=== PATIENT | female | born 1955 | race Caucasian/White ===

== ENCOUNTER 2022-04-28 07:40 | Outpatient (CLI) | payer MEDICARE, SELFPAY ==
--- NOTE | ~2022-04-28 | MM_ITS ---
EXAMINATION: MM screening [facility] BI w shara HISTORY: Screening mammogram TECHNIQUE: Craniocaudal and mediolateral oblique 3-D tomosynthesis images were obtained and synthetic 2-D images were generated. CAD analysis was submitted and interpreted. COMPARISON: 04/25/2019, 03/29/2018, 03/27/2017 bilateral screening mammogram examinations BREAST PARENCHYMAL COMPOSITION: The breasts are almost entirely fatty. FINDINGS: There is no evidence of suspicious mass, calcification, or architectural distortion to sugg est malignancy in either breast. There has been no suspicious interval change. IMPRESSION: 1. No mammographic evidence of malignancy. 2. Recommend routine screening mammography in one year. BI-RADS Category 1: Negative Reviewed, dictated and finalized at location A. [facility] [employer]
== END 2022-04-28 07:41 | disposition home or self-care (01) ==
LOC: ANHIMG 07:43
PROVIDERS: PCP Internal Medicine; Visit Provider Internal Medicine
DX: Z12.31 Encounter for screening mammogram for malignant neoplasm of breast (principal)
CPT/HCPCS: 77063; 77067

== ENCOUNTER 2023-06-15 08:17 | Outpatient (CLI) | payer MEDICARE, SELFPAY ==
--- NOTE | ~2023-06-15 | MM_ITS ---
EXAMINATION: MM screening tenisha BI w shara HISTORY: Screening TECHNIQUE: Craniocaudal and mediolateral oblique 3-D tomosynthesis images were obtained and synthetic 2-D images were generated. CAD analysis was submitted and interpreted. COMPARISON: Comparison to multiple prior studies sequentially, with oldest reviewed study dated 02/20. BREAST PARENCHYMAL COMPOSITION: Not Dense: Breast are almost entirely fatty. FINDINGS: There is no evidence of suspicious mass, calcification, or architectural distortion to sugg est malignancy in either breast. There has been no suspicious interval change. IMPRESSION: 1. No mammographic evidence of malignancy. 2. Recommend routine screening mammography in one year. BI-RADS Category 1: Negative Reviewed, dictated and finalized at location A. [employer]
== END 2023-06-15 08:18 | disposition home or self-care (01) ==
LOC: ANHIMG 08:20
PROVIDERS: PCP Internal Medicine; Visit Provider Internal Medicine
DX: Z12.31 Encounter for screening mammogram for malignant neoplasm of breast (principal)
CPT/HCPCS: 77063; 77067

== ENCOUNTER 2024-08-05 07:12 | Outpatient (CLI) | payer MEDICARE, SELFPAY ==
--- NOTE | ~2024-08-05 | MM_ITS ---
EXAMINATION: MM screening tenisha BI w shara HISTORY: Screening TECHNIQUE: Craniocaudal and mediolateral oblique 3-D tomosynthesis images were obtained and synthetic 2-D images were generated. CAD analysis was submitted and interpreted. COMPARISON: Comparison to multiple prior studies sequentially, with oldest reviewed study dated 11/2016. BREAST PARENCHYMAL COMPOSITION: Not Dense: The breasts are almost entirely fatty. FINDINGS: There is no evidence of suspicious mass, calcification, or architectural distortion to sugg est malignancy in either breast. There has been no suspicious interval change. IMPRESSION: 1. No mammographic evidence of malignancy. 2. Recommend routine screening mammography in one year. BI-RADS Category 1: Negative Reviewed, dictated and finalized at location B.
--- OUTSIDE RECORDS SUMMARY | 2024-08-05 07:18 | XMS_ITS | Data Portability ---
Author Organization [facility], Main Office Address [address] [place] [address] Assessment No assessment recorded. Plan of Treatment Reminders Order Date Submit Date Provider Last Modified By Organization Details Last Modified Time Details Appointments Any 2024 07:45A Alex Casas MD Not available Not available Not available Medicare Wellness 2024 11:30A Alex Casas MD Not available Not available Not available Lab glycohemo globin, total, blood 2024 025 [facility] (Lab), [address] [place], [address], 05/30/2024 19:41:29 CMP, serum or plasma 2024 025 [facility] (Lab), [address] [place], [address], 05/30/2024 19:42:20 microalbu min, urine 2024 025 [facility] (Lab), [address] [place], [address], 05/30/2024 19:46:32 lipid panel, serum 2024 025 [facility] (Lab), [address] [place], [address], 05/30/2024 19:42:24 CBC w/ auto diff 2024 025 [facility] (Lab), [address] [place], [address], 05/30/2024 19:28:43 vitamin D, 25-hydrox y, total, serum [address] (Lab), [address] [place], [address], 06/06/2024 14:51:34 TSH, serum or plasma 2024 025 [facility] (Lab), [address] [place], [address], 05/30/2024 20:16:55 glycohemo globin, total, blood [address] (Lab), [address] [place], [address], 12/22/2023 09:57:06 CMP, serum or plasma [address] (Lab), [address] [place], [address], 12/22/2023 09:57:06 lipid panel, serum [address] (Lab), [address] [place], [address], 12/22/2023 09:57:06 glycohemo globin, total, blood 2023 024 [facility] (Lab), [address] [place], [address], 06/01/2023 20:31:49 CMP, serum or plasma 2023 024 [facility] (Lab), [address] [place], [address], 06/01/2023 19:42:31 microalbu min, urine 2023 024 [facility] (Lab), [address] [place], [address], 06/01/2023 19:40:43 TSH, serum or plasma 2023 024 [facility] (Lab), [address] [place], [address], 06/01/2023 20:10:57 glycohemo globin, total, blood 2022 023 [facility] (Lab), [address] [place], [address], 2023 23:40:30 microalbu min, urine [email or web address] (Lab), [address] [place], [address], 02/03/2023 07:55:18 CMP, serum or plasma 2022 023 [facility] (Lab), [address] [place], [address], 2023 21:31:45 lipid panel, serum 2022 023 [facility] (Lab), [address] [place], [address], 2023 21:31:50 vitamin D, 25-hydrox y, total, serum 2022 023 [facility] (Lab), [address] [place], [address], 01/30/2023 03:05:01 CMP, serum or plasma 2022 023 [facility] (Lab), [address] [place], [address], 01/30/2023 03:05:01 TSH, serum or plasma 2022 023 [facility] (Lab), [address] [place], [address], 2023 21:30:38 T4, free, serum 2022 023 [facility] (Lab), [address] [place], [address], 2023 21:45:58 T3, free, serum or plasma 2022 023 [facility] (Lab), [address] [place], [address], 2023 23:01:09 glycohemo globin, total, blood 2022 023 [facility] (Lab), [address] [place], [address], 09/30/2022 02:22:25 CMP, serum or plasma 2022 023 [facility] (Lab), [address] [place], [address], 09/30/2022 01:16:01 Referral None recorded. Procedures None recorded. Surgeries None recorded. Imaging MAMMO, screening , digital, bilateral - Please call patient to schedule. 2024 025 [email or web address] [facility], [address], [place] [address], [place], [address], 08/02/2024 10:24:18 LDCT, chest, for lung cancer screening - Please call patient to schedule. [address] ([facility]), [address] [place], [address], 06/08/2024 11:53:28 LDCT, chest, for lung cancer screening 2023 024 [facility] ([facility]), [address] [facility], [place], [address], 01/19/2024 09:58:33 MAMMO, screening , digital, bilateral - no auth required 2023 024 [email or web address] Not available 06/16/2023 18:36:27 LDCT, chest, for lung cancer screening 2023 024 Not available 06/16/2023 09:12:30 LDCT, chest, for lung cancer screening 2022 023 Not available 02/17/2023 08:10:16 Medication Orders simvastat in 10 mg tablet 2024 025 [facility], [address], [place], [address], 05/30/2024 09:45:24 losartan 50 mg-hydroc hlorothia zide 12.5 mg tablet 2024 025 [facility] Orlandocharity, [address], [place], [address], 05/30/2024 09:45:23 levothyro xine 50 mcg tablet 2024 025 [facility], [address], [place], [address], 05/30/2024 09:45:24 Jardiance 10 mg tablet 2023 024 [email or web address] [facility], [facility], [place], [address], 05/30/2024 09:22:59 simvastat in 10 mg tablet 2023 024 [facility], [facility], [place], [address], 11/30/2023 09:56:09 losartan 50 mg-hydroc hlorothia zide 12.5 mg tablet 2023 024 FLAQUITO [facility], [address] [place] [address], [address], 11/30/2023 09:54:07 levothyro xine 50 mcg tablet 2023 024 F[place] [facility], [address] [place] [address], [address], 11/30/2023 09:54:09 Jardiance 10 mg tablet 2023 024 [email or web address] [facility], [address] [place] [address], [address], 05/30/2024 09:22:59 betametha sone valerate 0.1 % topical cream 2023 024 [facility], [address] [place], [address], 06/01/2023 10:18:52 losartan 50 mg-hydroc hlorothia zide 12.5 mg tablet 2023 024 [facility], [address] [place] [address], [address], 06/01/2023 14:25:51 simvastat in 10 mg tablet 2023 024 [facility], [address] [place] [address], [address], 06/01/2023 14:25:51 levothyro xine 50 mcg tablet 2023 024 [email or web address], [address] [place] [address], [address], 06/01/2023 14:25:51 losartan 50 mg-hydroc hlorothia zide 12.5 mg tablet 2022 023 [place] [facility], [address] [place] [address], [address], [place], [address], 09/29/2022 10:32:02 levothyro xine 50 mcg tablet 2022 023 F[place] [facility], [address] [place] [address], [address], [place], [address], 09/29/2022 10:32:02 Patient TargetsNo targets recorded. Patient Instructions Encounter Date Encounter Id Patient Instructions Last Modified By Organization Details Last Modified Time 11/30/2023 [id number] dementia rating scale-2* Not available 11/30/2023 15:03:20 depression screening* Not available 11/30/2023 17:18:27 alcohol misuse* Not available 11/30/2023 17:18:27 multi-dimensiona l health assessment questionnaire* Not available 11/30/2023 17:18:27 advance directiv es: care instructions Not available 11/30/2023 17:18:27 advance care planning: care instructions Not available 11/30/2023 17:18:27 [place] Advance Directives Not available 11/30/2023 17:18:27 Personalized a lt Plan and Screening Recommendations Advance Directives - Do you have one? No You have indicated that you are capable of preparing your advance care directive Advance Directives - Do we have your advance directive on file in your health record? No, please bring in a copy at your earliest convenience Primary Prevention/Interven tion (prevents or decreases the chance of common diseases from occurring) Smoking Risk: Non Smoker Alcohol Misuse Screening: Negative Weight: Appropriate Overwei ght continue your current weight loss efforts try to lose 5% of your body weight try to lose 10% of your body weight Physical activity: Appropriate physical activity minimum of 10-20 minutes of activity that causes mild breathlessness/day Nutrition: Good Average Refer to attached handout Heart-Healthy Diet: After Your Visit Fall Risk (screened today): Low Refer to attached handout Preventing Falls: After your Visit Vaccines Pneumococcal: Ordered Influenza: Your next one in the fall of this year Chronic Disease Risks Stroke: Low Risk Intermediate Risk I have no recommendations Act anatoliy diagnosis, Continue current treatment plan Heart Attack: Low risk Intermediate Risk I have no recommendations Act anatoliy diagnosis, Continue current treatment plan Clogging of the Arteries: Low risk Intermediate Risk I have no recommendations Act anatoliy diagnosis, Continue current treatment plan Diabetes: Low Risk Intermediate Risk Active diagnosis, Continue current treatment plan Secondary Prevention/Interven tion (detects treatable diseases before they may cause symptoms, disability, or ) Breast Cancer Screening with mammogram: No screening necessary Cervical/Uterine/Ov raegan Cancer Screening: No screening necessary Osteoporosis Screening: No screening necessary Date Screening Last Performed: _2021____ Colon Cancer Screening: Date Screening Last Performed: Eye Disease Screening: No Eye exam necessary Dementia Risk: Low I have no recommendations Depression Screening: Negative [email or web address] Not available 11/30/2023 10:47:52 Reason for Referral None Reported. Results Created Date Observation Date Name Description Value Unit Range Abnormal Flag Note LastModifiedBy Organization Detail LastModifiedTime 09/30/1909/29/2022 COMPR EHENS ANATOLIY METAB OLIC PANEL sodium 137 mmol/ L 137-14 5 Not Available [facility] (Lab) [address] [place], [address], 09/29/2022 20:04:31 09/30/19 23 09/29/2022 COMPR EHENS ANATOLIY METAB OLIC PANEL potassium 4.0 mmol/ L 3.5-5. 1 Not Available [facility] (Lab) [address] [place], [address], 09/29/2022 20:04:31 09/30/19 23 09/29/2022 COMPR EHENS ANATOLIY METAB OLIC PANEL chloride 100 mmol/ L 98-107 Not Available [facility] (Lab) [address] [place], [address], 09/29/2022 20:04:31 09/30/19 23 09/29/2022 COMPR EHENS ANATOLIY METAB OLIC PANEL carbon dioxide 26 mmol/ L 22-30 Not Available [facility] (Lab) [address] [place], [address], 09/29/2022 20:04:31 09/30/19 23 09/29/2022 COMPR EHENS ANATOLIY METAB OLIC PANEL anion gap 15.0 mmol/ L 14-22 Not Available [facility] (Lab) [address] [place], [address], 09/29/2022 20:04:31 09/30/19 23 09/29/2022 COMPR EHENS ANATOLIY METAB OLIC PANEL glucose 200 mg/dL 70-99 high Not Available [facility] (Lab) [address] [place], [address], 09/29/2022 20:04:31 09/30/19 23 09/29/2022 COMPR EHENS ANATOLIY METAB OLIC PANEL BUN 18 mg/dL 8-19 Not Available [facility] (Lab) [address] [place], [address], 09/29/2022 20:04:31 09/30/19 23 09/29/2022 COMPR EHENS ANATOLIY METAB OLIC PANEL creatinine 0.64 mg/dL 0.66-1 .25 low Not Available [facility] (Lab) [address] [place], [address], 09/29/2022 20:04:31 09/30/19 23 09/29/2022 COMPR EHENS ANATOLIY METAB OLIC PANEL GFR >60 Refer ence Range : [place] GFR Healt hy Adult : >60 mL/mi n/1.7 3 m2 Chron ic Kidne y Disea se: 15-60 mL/mi n/1.7 3 m2 Kidne y Failu re: <15/m L/min /1.73 m2 www.n iddk. nih.g ov The MDRD study equat ion has not been valid ated in child josef <18 years of age; pregn ant women ; the elder ly >85 years of age; or in some racia l or ethni c subgr oups, such as Hispa nics. Outsi de the valid ated shaila eters , estim ated GFR is less accur ate, requi ring clini nikita judgm ent on a case- by-ca se basis . Clini nikita inter preta tion for other races and ages must be made by the clini sheridan. The MDRD study equat ion has not been valid ated for the evalu ation of serum creat inine relat ed to nutri monica l statu s or medic ation usage . For perso ns <18 years of age, a pedia tric GFR calcu lator is avail able on the [facility] websi te: https ://ww w.kid jonathon.o rg/pr ofess ional s/kdo qi/gf r_cal culat or Not Available [facility] (Lab) [address] [place], [address], 09/29/2022 20:04:31 09/30/19 23 09/29/2022 COMPR EHENS ANATOLIY METAB OLIC PANEL alkaline phosphatase 94 U/L 38-126 Not Available [facility] (Lab) [address] [place], [address], 09/29/2022 20:04:31 09/30/19 23 09/29/2022 COMPR EHENS ANATOLIY METAB OLIC PANEL alanine aminotransfe rase 31 U/L 0-35 Not Available [facility] (Lab) [address] [place], [address], 09/29/2022 20:04:31 09/30/19 23 09/29/2022 COMPR EHENS ANATOLIY METAB OLIC PANEL aspartate aminotransfe rase 30 U/L 15-37 Not Available [facility] (Lab) [address] [place], [address], 09/29/2022 20:04:31 09/30/19 23 09/29/2022 COMPR EHENS ANATOLIY METAB OLIC PANEL bilirubin, total 1.10 mg/dL 0.20-1 .30 Not Available [facility] (Lab) [address] [place], [address], 09/29/2022 20:04:31 09/30/19 23 09/29/2022 COMPR EHENS ANATOLIY METAB OLIC PANEL calcium 9.4 mg/dL 8.4-10 .2 Not Available [facility] (Lab) [address] [place], [address], 09/29/2022 20:04:31 09/30/19 23 09/29/2022 COMPR EHENS ANATOLIY METAB OLIC PANEL total protein 7.0 g/dL 6.3-8. 2 Not Available [facility] (Lab) [address] [place], [address], 09/29/2022 20:04:31 09/30/19 23 09/29/2022 COMPR EHENS ANATOLIY METAB OLIC PANEL albumin 4.1 g/dL 3.0-4. 4 Not Available [facility] (Lab) [address] [place], [address], 09/29/2022 20:04:31 09/30/19 23 09/29/2022 COMPR EHENS ANATOLIY METAB OLIC PANEL globulin 2.9 g/dL 2.6-4. 2 Not Available [facility] (Lab) [address] [place], [address], 09/29/2022 20:04:31 09/30/19 23 09/29/2022 COMPR EHENS ANATOLIY METAB OLIC PANEL A/G ratio 1.4 ratio 1.0-2. 0 Not Available [facility] (Lab) [address] [place], [address], 09/29/2022 20:04:31 09/30/19 23 09/29/2022 HEMOG LOBIN A1C HA1C 8.5 % 4.0-6. 0 high Diabe lottie Scree aishwarya Crite kd: <5.7% Consi stent with absen ce of diabe lottie 5.7-6 .4% Consi stent with incre ased risk for diabe lottie (pred iabet es) >OR=6 .5% Consi stent with diabe lottie REFER ENCE: Diabe lottie Care 2016, 39(Burks ppl.1 ):s13 -s22 Not Available [facility] (Lab) [address] [place], [address], 09/29/2022 20:54:12 01/30/2001/29/2023 TSH thyroid-stim ulating hormone 2.760 uIU/m L 0.465- 4.680 Not Available [facility] (Lab) [address] [place], [address], 2023 21:30:38 01/30/2001/29/2023 COMPR EHENS ANATOLIY METAB OLIC PANEL sodium 138 mmol/ L 137-14 5 Not Available [facility] (Lab) [address] [place], [address], 2023 21:31:45 01/30/2001/29/2023 COMPR EHENS ANATOLIY METAB OLIC PANEL potassium 3.8 mmol/ L 3.5-5. 1 Not Available [facility] (Lab) [address] [place], [address], 2023 21:31:45 01/30/20 23 2023 COMPR EHENS ANATOLIY METAB OLIC PANEL chloride 103 mmol/ L 98-107 Not Available [facility] (Lab) [address] [place], [address], 2023 21:31:45 01/30/20 23 2023 COMPR EHENS ANATOLIY METAB OLIC PANEL carbon dioxide 24 mmol/ L 22-30 Not Available [facility] (Lab) [address] [place], [address], 2023 21:31:45 01/30/20 23 2023 COMPR EHENS ANATOLIY METAB OLIC PANEL anion gap 14.8 mmol/ L 14-22 Not Available [facility] (Lab) [address] [place], [address], 2023 21:31:45 01/30/2001/29/2023 COMPR EHENS ANATOLIY METAB OLIC PANEL glucose 130 mg/dL 70-99 high Not Available [facility] (Lab) [address] [place], [address], 2023 21:31:45 01/30/2001/29/2023 COMPR EHENS ANATOLIY METAB OLIC PANEL BUN 17 mg/dL 8-19 Not Available [facility] (Lab) [address] [place], [address], 2023 21:31:45 01/30/20 23 2023 COMPR EHENS ANATOLIY METAB OLIC PANEL creatinine 0.72 mg/dL 0.66-1 .25 Not Available [facility] (Lab) [address] [place], [address], 2023 21:31:45 01/30/2001/29/2023 COMPR EHENS ANATOLIY METAB OLIC PANEL GFR >60 Refer ence Range : [place] GFR Healt hy Adult : >60 mL/mi n/1.7 3 m2 Chron ic Kidne y Disea se: 15-60 mL/mi n/1.7 3 m2 Kidne y Failu re: <15/m L/min /1.73 m2 www.n iddk. nih.g ov The MDRD study equat ion has not been valid ated in child josef <18 years of age; pregn ant women ; the elder ly >85 years of age; or in some racia l or ethni c subgr oups, such as Hispa nics. Outsi de the valid ated shaila eters , estim ated GFR is less accur ate, requi ring clini nikita judgm ent on a case- by-ca se basis . Clini nikita inter preta tion for other races and ages must be made by the clini sheridan. The MDRD study equat ion has not been valid ated for the evalu ation of serum creat inine relat ed to nutri monica l statu s or medic ation usage . For perso ns <18 years of age, a pedia tric GFR calcu lator is avail able on the [facility] websi te: https ://ilia torres.neftaly holt.o rg/pr ofess ional s/kdo qi/gf r_cal culat or Not Available [facility] (Lab) [address] [place], [address], 2023 21:31:45 01/30/2001/29/2023 COMPR EHENS ANATOLIY METAB OLIC PANEL alkaline phosphatase 109 U/L 38-126 Not Available [facility] (Lab) [address] [place], [address], 2023 21:31:45 01/30/2001/29/2023 COMPR EHENS ANATOLIY METAB OLIC PANEL alanine aminotransfe rase 46 U/L 0-35 high Not Available [facility] (Lab) [address] [place], [address], 2023 21:31:45 01/30/2001/29/2023 COMPR EHENS ANATOLIY METAB OLIC PANEL aspartate aminotransfe rase 43 U/L 15-37 high Not Available [facility] (Lab) [address] [place], [address], 2023 21:31:45 01/30/2001/29/2023 COMPR EHENS ANATOLIY METAB OLIC PANEL bilirubin, total 1.50 mg/dL 0.20-1 .30 high Not Available [facility] (Lab) [address] [place], [address], 2023 21:31:45 01/30/20 23 2023 COMPR EHENS ANATOLIY METAB OLIC PANEL calcium 9.5 mg/dL 8.4-10 .2 Not Available [facility] (Lab) [address] [place], [address], 2023 21:31:45 01/30/2001/29/2023 COMPR EHENS ANATOLIY METAB OLIC PANEL total protein 7.0 g/dL 6.3-8. 2 Not Available [facility] (Lab) [address] [place], [address], 2023 21:31:45 01/30/2001/29/2023 COMPR EHENS ANATOLIY METAB OLIC PANEL albumin 4.4 g/dL 3.0-4. 4 Not Available [facility] (Lab) [address] [place], [address], 2023 21:31:45 01/30/2001/29/2023 COMPR EHENS ANATOLIY METAB OLIC PANEL globulin 2.6 g/dL 2.6-4. 2 Not Available [facility] (Lab) [address] [place], [address], 2023 21:31:45 01/30/2001/29/2023 COMPR EHENS ANATOLIY METAB OLIC PANEL A/G ratio 1.7 ratio 1.0-2. 0 Not Available [facility] (Lab) [address] [place], [address], 2023 21:31:45 01/30/2001/29/2023 LIPID PANEL cholesterol 202 mg/dL 140-19 9 high NIH MICHELLE NSUS RECOM MENDA TION FOR ALEX STERO L: ADULT CHILD LOW RISK: <200 <170 BORDE RLINE : <200- 239 ----- HIGH RISK: >240 >200 Not Available [facility] (Lab) [address] [place], [address], 2023 21:31:50 01/30/2001/29/2023 LIPID PANEL triglyceride s 96 mg/dL 0-150 NIH MICHELLE NSUS REPOR T RECOM MENDA TION FOR TRIGL YCERI [place]: ADULT CHILD LOW RISK: <150 ----- BODER LINE: 150-1 99 ----- HIGH RISK: >200 ----- Not Available [facility] (Lab) [address] [place], [address], 2023 21:31:50 01/30/2001/29/2023 LIPID PANEL HDL cholesterol 75 mg/dL 40- Not Available [facility] (Lab) [address] [place], [address], 2023 21:31:50 01/30/2001/29/2023 LIPID PANEL LDL cholesterol, calculated 108 mg/dL 0-130 NIH MICHELLE NSUS REPOR T RECOM MENDA TIONS FOR LDL: ADULT CHILD LOW RISK <130 <110 (OPTI MAL LDL) <100 ----- BORDE RLINE : 130-1 59 ----- HIGH RISK: >160 >130 A TRIGL YCERI DE RESUL T >400 INVAL IDATE S THE CALCU LATIO N FOR LDL FRACT IONAT ION - THE LDL RESUL T WILL NOT BE REPOR DAYDAY. Not Available [facility] (Lab) [address] [place], [address], 2023 21:31:50 01/30/2001/29/2023 T4 FREE free T4 1.52 NG/dL 0.78-2 .19 Not Available [facility] (Lab) [address] [place], [address], 2023 21:45:58 01/30/2001/29/2023 VITAM IN D 25-HY DROXY [id number] 35.5 NG/mL 30-100 Vitam in D Statu s: Defic ient: <20 ng/mL Insuf ficie nt: 20-29 ng/mL Suffi cient : 30-10 0 ng/mL Not Available [facility] (Lab) [address] [place], [address], 2023 22:33:32 01/30/20 23 2023 T3 FREE free T3 2.6 pg/mL 2.77-5 .27 low Not Available [facility] (Lab) [address] [place], [address], 2023 23:01:09 01/30/20 23 2023 HEMOG LOBIN A1C HA1C 6.7 % 4.0-6. 0 high Diabe lottie Scree aishwarya Crite kd: <5.7% Consi stent with absen ce of diabe lottie 5.7-6 .4% Consi stent with incre ased risk for diabe lottie (pred iabet es) >OR=6 .5% Consi stent with diabe lottie REFER ENCE: Diabe lottie Care 2016, 39(Burks ppl.1 ):s13 -s22 Not Available [facility] (Lab) [address] [place], [address], 2023 23:40:30 06/01/19 24 06/01/2023 MICRO ALBUM IN RANDO M URINE microalbumin , urine 14.1 mg/L 0.0-16 .6 Not Available [facility] (Lab) [address] [place], [address], 06/01/2023 19:40:43 06/01/19 24 06/01/2023 COMP MET PANEL /LIVE R sodium 140 mmol/ L 137-14 5 Not Available [facility] (Lab) [address] [place], [address], 06/01/2023 19:42:31 06/01/19 24 06/01/2023 COMP MET PANEL /LIVE R potassium 4.2 mmol/ L 3.5-5. 1 Not Available [facility] (Lab) [address] [place], [address], 06/01/2023 19:42:31 06/01/19 24 06/01/2023 COMP MET PANEL /LIVE R chloride 105 mmol/ L 98-107 Not Available [facility] (Lab) [address] [place], [address], 06/01/2023 19:42:31 06/01/19 24 06/01/2023 COMP MET PANEL /LIVE R carbon dioxide 28 mmol/ L 22-30 Not Available [facility] (Lab) [address] [place], [address], 06/01/2023 19:42:31 06/01/19 24 06/01/2023 COMP MET PANEL /LIVE R anion gap 11.2 mmol/ L 14-22 low Not Available [facility] (Lab) [address] [place], [address], 06/01/2023 19:42:31 06/01/19 24 06/01/2023 COMP MET PANEL /LIVE R glucose 141 mg/dL 70-99 high Not Available [facility] (Lab) [address] [place], [address], 06/01/2023 19:42:31 06/01/19 24 06/01/2023 COMP MET PANEL /LIVE R BUN 21 mg/dL 8-19 high Not Available [facility] (Lab) [address] [place], [address], 06/01/2023 19:42:31 06/01/19 24 06/01/2023 COMP MET PANEL /LIVE R creatinine 0.57 mg/dL 0.66-1 .25 low Not Available [facility] (Lab) [address] [place], [address], 06/01/2023 19:42:31 06/01/19 24 06/01/2023 COMP MET PANEL /LIVE R GFR >60 Refer ence Range : [place] GFR Healt hy Adult : >60 mL/mi n/1.7 3 m2 Chron ic Kidne y Disea se: 15-60 mL/mi n/1.7 3 m2 Kidne y Failu re: <15/m L/min /1.73 m2 www.n iddk. nih.g ov The MDRD study equat ion has not been valid ated in child josef <18 years of age; pregn ant women ; the elder ly >85 years of age; or in some racia l or ethni c subgr oups, such as Hispa nics. Outsi de the valid ated shaila eters , estim ated GFR is less accur ate, requi ring clini niktia judgm ent on a case- by-ca se basis . Clini nikita inter preta tion for other races and ages must be made by the clini sheridan. The MDRD study equat ion has not been valid ated for the evalu ation of serum creat inine relat ed to nutri monica l statu s or medic ation usage . For perso ns <18 years of age, a pedia tric GFR calcu lator is avail able on the [facility] websi te: https ://ilia w.neftaly holt.o rg/pr ofess ional s/kdo qi/gf r_cal culat or Not Available [facility] (Lab) [address] [place], [address], 06/01/2023 19:42:31 06/01/19 24 06/01/2023 COMP MET PANEL /LIVE R alkaline phosphatase 104 U/L 38-126 Not Available [facility] (Lab) [address] [place], [address], 06/01/2023 19:42:31 06/01/19 24 06/01/2023 COMP MET PANEL /LIVE R alanine aminotransfe rase 24 U/L 0-35 Not Available [facility] (Lab) [address] [place], [address], 06/01/2023 19:42:31 06/01/19 24 06/01/2023 COMP MET PANEL /LIVE R aspartate aminotransfe rase 33 U/L 15-37 Not Available [facility] (Lab) [address] [place], [address], 06/01/2023 19:42:31 06/01/1906/01/2023 COMP MET PANEL /LIVE R bilirubin, total 1.20 mg/dL 0.20-1 .30 Not Available [facility] (Lab) [address] [place], [address], 06/01/2023 19:42:31 06/01/19 24 06/01/2023 COMP MET PANEL /LIVE R bilirubin, conjugated (direct) 0.00 mg/dL 0.00-0 .30 Not Available [facility] (Lab) [address] [place], [address], 06/01/2023 19:42:31 06/01/19 24 06/01/2023 COMP MET PANEL /LIVE R biliurubin,u ncong. (indirect) 0.70 mg/dL 0.00-1 .1 Not Available [facility] (Lab) [address] [place], [address], 06/01/2023 19:42:31 06/01/19 24 06/01/2023 COMP MET PANEL /LIVE R calcium 9.3 mg/dL 8.4-10 .2 Not Available [facility] (Lab) [address] [place], [address], 06/01/2023 19:42:31 06/01/19 24 06/01/2023 COMP MET PANEL /LIVE R total protein 6.7 g/dL 6.3-8. 2 Not Available [facility] (Lab) [address] [place], [address], 06/01/2023 19:42:31 06/01/19 24 06/01/2023 COMP MET PANEL /LIVE R albumin 4.2 g/dL 3.0-4. 4 Not Available [facility] (Lab) [address] [place], [address], 06/01/2023 19:42:31 06/01/19 24 06/01/2023 COMP MET PANEL /LIVE R globulin 2.5 g/dL 2.6-4. 2 low Not Available [facility] (Lab) [address] [place], [address], 06/01/2023 19:42:31 06/01/19 24 06/01/2023 COMP MET PANEL /LIVE R A/G ratio 1.7 ratio 1.0-2. 0 Not Available [facility] (Lab) [address] [place], [address], 06/01/2023 19:42:31 06/01/19 24 06/01/2023 TSH thyroid-stim ulating hormone 2.800 uIU/m L 0.465- 4.680 Not Available [facility] (Lab) [address] [place], [address], 06/01/2023 20:10:57 06/01/19 24 06/01/2023 HEMOG LOBIN A1C HA1C 6.4 % 4.0-6. 0 high Diabe lottie Scree aishwarya Crite kd: <5.7% Consi stent with absen ce of diabe lottie 5.7-6 .4% Consi stent with incre ased risk for diabe lottie (pred iabet es) >OR=6 .5% Consi stent with diabe lottie REFER ENCE: Diabe lottie Care 2016, 39(Burks ppl.1 ):s13 -s22 Not Available [facility] (Lab) [address] [place], [address], 06/01/2023 20:31:49 05/30/19 25 05/30/2024 CBC/C OMPLE TE BLD COUNT W/DIF F white blood cells 4.7 x10'3 /uL 4.2-10 .8 Not Available [facility] (Lab) [address] [place], [address], 05/30/2024 19:28:43 05/30/19 25 05/30/2024 CBC/C OMPLE TE BLD COUNT W/DIF F red blood cells 5.03 x10'6 /uL 3.80-5 .20 Not Available [facility] (Lab) [address] [place], [address], 05/30/2024 19:28:43 05/30/19 25 05/30/2024 CBC/C OMPLE TE BLD COUNT W/DIF F hemoglobin 13.9 g/dL 12.0-1 5.6 Not Available [facility] (Lab) [address] [place], [address], 05/30/2024 19:28:43 05/30/19 25 05/30/2024 CBC/C OMPLE TE BLD COUNT W/DIF F hematocrit 43.5 % 35.7-4 5.7 Not Available [facility] (Lab) [address] [place], [address], 05/30/2024 19:28:43 05/30/19 25 05/30/2024 CBC/C OMPLE TE BLD COUNT W/DIF F mean red cell volume 86.5 fL 82.0-9 9.0 Not Available [facility] (Lab) [address] [place], [address], 05/30/2024 19:28:43 05/30/19 25 05/30/2024 CBC/C OMPLE TE BLD COUNT W/DIF F mean red cell hemoglobin 27.6 pg 27.0-3 3.0 Not Available [facility] (Lab) [address] [place], [address], 05/30/2024 19:28:43 05/30/19 25 05/30/2024 CBC/C OMPLE TE BLD COUNT W/DIF F mean RBC HGB concentratio n 32.0 g/dL 31.0-3 6.0 Not Available [facility] (Lab) [address] [place], [address], 05/30/2024 19:28:43 05/30/19 25 05/30/2024 CBC/C OMPLE TE BLD COUNT W/DIF F red cell distribution width 14.3 % 11.8-1 5.5 Not Available [facility] (Lab) [address] [place], [address], 05/30/2024 19:28:43 05/30/19 25 05/30/2024 CBC/C OMPLE TE BLD COUNT W/DIF F platelets 223 x10'3 /uL 150-40 0 Not Available [facility] (Lab) [address] [place], [address], 05/30/2024 19:28:43 05/30/19 25 05/30/2024 CBC/C OMPLE TE BLD COUNT W/DIF F mean platelet volume 11.3 fL 9.0-12 .4 Not Available [facility] (Lab) [address] [place], [address], 05/30/2024 19:28:43 05/30/19 25 05/30/2024 CBC/C OMPLE TE BLD COUNT W/DIF F neutrophils 49.5 % 39.0-7 2.0 Not Available [facility] (Lab) [address] [place], [address], 05/30/2024 19:28:43 05/30/19 25 05/30/2024 CBC/C OMPLE TE BLD COUNT W/DIF F lymphocytes 39.1 % 16.0-4 7.0 Not Available [facility] (Lab) [address] [place], [address], 05/30/2024 19:28:43 05/30/19 25 05/30/2024 CBC/C OMPLE TE BLD COUNT W/DIF F monocytes 5.4 % 5.0-12 .0 Not Available [facility] (Lab) [address] [place], [address], 05/30/2024 19:28:43 05/30/19 25 05/30/2024 CBC/C OMPLE TE BLD COUNT W/DIF F eosinophils 4.7 % 1.0-7. 0 Not Available [facility] (Lab) [address] [place], [address], 05/30/2024 19:28:43 05/30/19 25 05/30/2024 CBC/C OMPLE TE BLD COUNT W/DIF F basophils 1.1 % 0.0-2. 0 Not Available [facility] (Lab) [address] [place], [address], 05/30/2024 19:28:43 05/30/19 25 05/30/2024 CBC/C OMPLE TE BLD COUNT W/DIF F immature granulocytes 0.2 % 0.00-0 .50 Not Available [facility] (Lab) [address] [place], [address], 05/30/2024 19:28:43 05/30/19 25 05/30/2024 CBC/C OMPLE TE BLD COUNT W/DIF F neutrophils, absolute count 2.31 x10'3 /uL 1.5-8. 0 Not Available [facility] (Lab) [address] [place], [address], 05/30/2024 19:28:43 05/30/19 25 05/30/2024 CBC/C OMPLE TE BLD COUNT W/DIF F lymphocytes, absolute count 1.82 x10'3 /uL 1.07-3 .43 Not Available [facility] (Lab) [address] [place], [address], 05/30/2024 19:28:43 05/30/19 25 05/30/2024 CBC/C OMPLE TE BLD COUNT W/DIF F monocytes, absolute count 0.25 x10'3 /uL 0.29-0 .99 low Not Available [facility] (Lab) [address] [place], [address], 05/30/2024 19:28:43 05/30/19 25 05/30/2024 CBC/C OMPLE TE BLD COUNT W/DIF F eosinophils, absolute count 0.22 x10'3 /uL 0.02-0 .53 Not Available [facility] (Lab) [address] [place], [address], 05/30/2024 19:28:43 05/30/19 25 05/30/2024 CBC/C OMPLE TE BLD COUNT W/DIF F basophils, absolute count 0.05 x10'3 /uL 0.01-0 .08 Not Available [facility] (Lab) [address] [place], [address], 05/30/2024 19:28:43 05/30/19 25 05/30/2024 CBC/C OMPLE TE BLD COUNT W/DIF F immature granulocytes ,absolute 0.01 x10'3 /uL 0.00-0 .05 Not Available [facility] (Lab) [address] [place], [address], 05/30/2024 19:28:43 05/30/19 25 05/30/2024 CBC/C OMPLE TE BLD COUNT W/DIF F nucleated red blood cells 0.0 % -0 Not Available [facility] (Lab) [address] [place], [address], 05/30/2024 19:28:43 05/30/19 25 05/30/2024 CBC/C OMPLE TE BLD COUNT W/DIF F NRBC# 0.00 x10'3 /uL Not Available [facility] (Lab) [address] [place], [address], 05/30/2024 19:28:43 05/30/19 25 05/30/2024 HEMOG LOBIN A1C HA1C 7.4 % 4.0-6. 0 high Diabe lottie Scree aishwarya Crite kd: <5.7% Consi stent with absen ce of diabe lottie 5.7-6 .4% Consi stent with incre ased risk for diabe lottie (pred iabet es) >OR=6 .5% Consi stent with diabe lottie REFER ENCE: Diabe lottie Care 2016, 39(Burks ppl.1 ):s13 -s22 Not Available [facility] (Lab) [address] [place], [address], 05/30/2024 19:41:28 05/30/19 25 05/30/2024 COMPR EHENS ANATOLIY METAB OLIC PANEL sodium 136 mmol/ L 137-14 5 low Not Available [facility] (Lab) [address] [place], [address], 05/30/2024 19:42:20 05/30/19 25 05/30/2024 COMPR EHENS ANATOLIY METAB OLIC PANEL potassium 4.2 mmol/ L 3.5-5. 1 Not Available [facility] (Lab) [address] [place], [address], 05/30/2024 19:42:20 05/30/19 25 05/30/2024 COMPR EHENS ANATOLIY METAB OLIC PANEL chloride 102 mmol/ L 98-107 Not Available [facility] (Lab) [address] [place], [address], 05/30/2024 19:42:20 05/30/19 25 05/30/2024 COMPR EHENS ANATOLIY METAB OLIC PANEL carbon dioxide 29 mmol/ L 22-30 Not Available [facility] (Lab) [address] [place], [address], 05/30/2024 19:42:20 05/30/19 25 05/30/2024 COMPR EHENS ANATOLIY METAB OLIC PANEL anion gap 9.2 mmol/ L 14-22 low Not Available [facility] (Lab) [address] [place], [address], 05/30/2024 19:42:20 05/30/19 25 05/30/2024 COMPR EHENS ANATOLIY METAB OLIC PANEL glucose 149 mg/dL 70-99 high Not Available [facility] (Lab) [address] [place], [address], 05/30/2024 19:42:20 05/30/19 25 05/30/2024 COMPR EHENS ANATOLIY METAB OLIC PANEL BUN 26 mg/dL 8-19 high Not Available [facility] (Lab) [address] [place], [address], 05/30/2024 19:42:20 05/30/19 25 05/30/2024 COMPR EHENS ANATOLIY METAB OLIC PANEL creatinine 0.78 mg/dL 0.66-1 .25 Not Available [facility] (Lab) [address] [place], [address], 05/30/2024 19:42:20 05/30/19 25 05/30/2024 COMPR EHENS ANATOLIY METAB OLIC PANEL GFR >60 Refer ence Range : [place] ge GFR Healt hy Adult : >60 mL/mi n/1.7 3 m2 Chron ic Kidne y Disea se: 15-60 mL/mi n/1.7 3 m2 Kidne y Failu re: <15/m L/min /1.73 m2 www.n iddk. nih.g ov The MDRD study equat ion has not been valid ated in child josef <18 years of age; pregn ant women ; the elder ly >85 years of age; or in some racia l or ethni c subgr oups, such as Hispa nics. Outsi de the valid ated shaila eters , estim ated GFR is less accur ate, requi ring clini nikita judgm ent on a case- by-ca se basis . Clini nikita inter preta tion for other races and ages must be made by the clini sheridan. The MDRD study equat ion has not been valid ated for the evalu ation of serum creat inine relat ed to nutri monica l statu s or medic ation usage . For perso ns <18 years of age, a pedia tric GFR calcu jesusita is avail able on the [facility] websi te: https ://ilia torres.neftaly caiy.o waldemar/pr ofess ional s/kdo qi/gf r_cal culat or Not Available [facility] (Lab) [address] [place], [address], 05/30/2024 19:42:20 05/30/19 25 05/30/2024 COMPR EHENS ANATOLIY METAB OLIC PANEL alkaline phosphatase 80 U/L 38-126 Not Available [facility] (Lab) [address] [place], [address], 05/30/2024 19:42:20 05/30/19 25 05/30/2024 COMPR EHENS ANATOLIY METAB OLIC PANEL alanine aminotransfe rase 36 U/L 0-35 high Not Available [facility] (Lab) [address] [place], [address], 05/30/2024 19:42:20 05/30/19 25 05/30/2024 COMPR EHENS ANATOLIY METAB OLIC PANEL aspartate aminotransfe rase 40 U/L 15-37 high Not Available [facility] (Lab) [address] [place], [address], 05/30/2024 19:42:20 05/30/19 25 05/30/2024 COMPR EHENS ANATOLIY METAB OLIC PANEL bilirubin, total 1.40 mg/dL 0.20-1 .30 high Not Available [facility] (Lab) [address] [place], [address], 05/30/2024 19:42:20 05/30/19 25 05/30/2024 COMPR EHENS ANATOLIY METAB OLIC PANEL calcium 9.8 mg/dL 8.4-10 .2 Not Available [facility] (Lab) [address] [place], [address], 05/30/2024 19:42:20 05/30/19 25 05/30/2024 COMPR EHENS ANATOLIY METAB OLIC PANEL total protein 7.0 g/dL 6.3-8. 2 Not Available [facility] (Lab) [address] [place], [address], 05/30/2024 19:42:20 05/30/19 25 05/30/2024 COMPR EHENS ANATOLIY METAB OLIC PANEL albumin 4.6 g/dL 3.0-4. 4 high Not Available [facility] (Lab) [address] [place], [address], 05/30/2024 19:42:20 05/30/19 25 05/30/2024 COMPR EHENS ANATOLIY METAB OLIC PANEL globulin 2.4 g/dL 2.6-4. 2 low Not Available [facility] (Lab) [address] [place], [address], 05/30/2024 19:42:20 05/30/19 25 05/30/2024 COMPR EHENS ANATOLIY METAB OLIC PANEL A/G ratio 1.9 ratio 1.0-2. 0 Not Available [facility] (Lab) [address] [place], [address], 05/30/2024 19:42:20 05/30/19 25 05/30/2024 LIPID PANEL cholesterol 189 mg/dL 140-19 9 NIH MICHELLE NSUS RECOM MENDA TION FOR ALEX STERO L: ADULT CHILD LOW RISK: <200 <170 BORDE RLINE : <200- 239 ----- HIGH RISK: >240 >200 Not Available [facility] (Lab) [address] [place], [address], 05/30/2024 19:42:24 05/30/19 25 05/30/2024 LIPID PANEL triglyceride s 87 mg/dL 0-150 NIH MICHELLE NSUS REPOR T RECOM MENDA TION FOR TRIGL YCERI [place]: ADULT CHILD LOW RISK: <150 ----- BODER LINE: 150-1 99 ----- HIGH RISK: >200 ----- Not Available [facility] (Lab) [address] [place], [address], 05/30/2024 19:42:24 05/30/19 25 05/30/2024 LIPID PANEL HDL cholesterol 90 mg/dL 40- Not Available [facility] (Lab) [address] [place], [address], 05/30/2024 19:42:24 05/30/19 25 05/30/2024 LIPID PANEL LDL cholesterol, calculated 82 mg/dL 0-130 NIH MICHELLE NSUS REPOR T RECOM MENDA TIONS FOR LDL: ADULT CHILD LOW RISK <130 <110 (OPTI MAL LDL) <100 ----- ABBI RLINE : 130-1 59 ----- HIGH RISK: >160 >130 A TRIGL YCERI DE RESUL T >400 INVAL IDATE S THE CALCU LATIO N FOR LDL FRACT IONAT ION - THE LDL RESUL T WILL NOT BE REPOR DAYDAY. Not Available [facility] (Lab) [address] [place], [address], 05/30/2024 19:42:24 05/30/19 25 05/30/2024 MICRO ALBUM IN RANDO M URINE microalbumin , urine <6.0 mg/L 0.0-16 .6 Not Available [facility] (Lab) [address] [place], [address], 05/30/2024 19:46:32 05/30/19 25 05/30/2024 VITAM IN D 25-HY DROXY [id number] 24.7 NG/mL 30-100 low Vitam in D Statu s: Defic ient: <20 ng/mL Insuf ficie nt: 20-29 ng/mL Suffi cient : 30-10 0 ng/mL Not Available [facility] (Lab) [address] [place], [address], 05/30/2024 19:57:40 05/30/19 25 05/30/2024 TSH thyroid-stim ulating hormone 3.700 uIU/m L 0.465- 4.680 Not Available [facility] (Lab) [address] [place], [address], 05/30/2024 20:16:55 06/16/19 24 06/15/2023 MAMMO , astere aishwarya, digit al, bilat eral No observ ation record ed. Not Available 2023 09:44:50 06/17/19 24 06/15/2023 MAMMO , astere aishwarya, digit al, bilat eral No observ ation record ed. Not Available 2023 09:44:50 Result Notes None recorded. Problems Name Problem SNOMED Code Status Onset Date Resolution Date Notes Provider Name and Address Organization Details Recorded Time Liver function tests outside reference range 421954317 Active 2021 Not Available [facility] 3 01:24:36 Low back pain 410047795 Active 2021 Not Available [facility] 3 01:24:36 Osteopenia 256464633 Active 2021 Not Available [facility] 3 01:24:36 Hypothyroi dism 32017774 Active 2021 Not Available [facility] 3 01:24:36 Acute urinary tract infection 752708396 Completed 202104/24/2022 Not Available [facility] 3 01:24:36 Essential hypertensi on 59740074 Active 2021 Not Available [facility] 3 01:24:36 Urinary tract infectious disease 55484575 Completed 202104/24/2022 Not Available [facility] 3 01:24:36 Liver enzymes level above reference range 439469285 Active 2021 Not Available [facility] 3 01:24:36 Diabetes mellitus 95202059 Active 2022 Soraya siddiqui SUSANNERukhsana null, [place] - [facility] 3 16:30:31 Nodule of lung 513292848 Active 2021 Not Available [facility] 3 01:24:36 Contact dermatitis caused by urushiol from [facility] kimmy 430284710 Completed 202209/26/2022 KRISTEN Gonzalez null, [place] [facility] 3 16:30:53 Uncontroll ed type 2 diabetes mellitus 762419096 Active 2022 Tiffani Palencia CMA null, [place] [facility] 3 12:44:14 Type 2 diabetes mellitus 59412464 Active 2022 Tiffani Palencia CMA null, [place] [facility] 3 12:53:00 Vitamin D deficiency 24984206 Active 2022 Ilan Casas MD [address] [facility] [address], [place], [address] , [facility] - [facility] 3 16:06:49 Hyperlipid emia 44628772 Active 2022 Chloe Donis MA null, [place] - [facility] 3 16:54:26 Eruption 354119008 Active 2023 Ilan Casas MD [address] [facility] [address], [place], [address] , [place] [facility] [place] [facility] 4 10:16:05 Acute sinusitis 35487287 Active 2023 Charity Braun LPN null, [place] [facility] 4 12:59:26 Type 2 diabetes mellitus without complicati on 082260157 Active 2024 Charity Braun LPN null, [place] [facility] 5 12:20:48 Problem Notes None recorded. Procedures Surgical History Date Name Laterality Status Provider Name and Address Organization Details Recorded Time 11/30/19 Medicare Wellness CPT Code, subsequent completed Maureen Dietz RN [facility] 11/30/2023 10:01:28 11/30/19 24 Advanced Care Planning completed Maureen Dietz RN [facility] 11/30/2023 10:38:45 Hysterectomy completed Not Available [facility] 06/19/2022 01:23:47 Cholecystectomy completed Not Available [facility] 06/19/2022 01:23:47 excision of urinary bladder completed Not Available [facility] 06/19/2022 01:23:47 Imaging Results Imaging Date Name Status LastModified by Organiz ation Details LastModified Time 06/15/2023 MAMMO, screening, digital, bilateral completed [email or web address] Information not available 11/30/2023 09:44:50 06/15/2023 MAMMO, screening, digital, bilateral [email or web address] Information not available 11/30/2023 09:44:50 Procedure Notes None recorded. Medical Equipment None Reported. Allergies No known drug allergies Medications Name Sig Start Date Stop Date Status Note LastModified by Organization Details LastModified Time losartan 50 mg tablet Take 1 tablet every day by oral route. 09/29 completed Not Available Not Available Not Available amoxicill in 500 mg capsule TAKE 1 CAPSULE BY MOUTH THREE TIMES DAILY 11/29 completed Not Available Not Available Not Available BD Alcohol Swabs use as directed to test blood sugars once daily 2024 active Not Available Not Available Not Avai lable OneTouch Ultra Control solution 07/13 completed Not Available Not Available Not Available Medrol (Vicente) 4 mg tablets in a dose pack Take 1 dose pk by oral route as directed . 09/29 completed Not Available Not Available Not Available simvastat in 10 mg tablet Take 1 tablet every day by oral route. 2024 active Not Available Not Available Not Avai lable Macrobid 100 mg capsule Take 1 capsule every 12 hours by oral route for 7 days. 06/02 completed Not Available Not Available Not Available betametha sone valerate 0.1 % topical cream APPLY A THIN LAYER TOPICALL Y TO THE AFFECTED AREA ONCE DAILY active Not Available Not Available No t Available levothyro xine 50 mcg tablet TAKE 1 TABLET BY MOUTH EVERY DAY active Not Available Not Available No t Available ergocalci ferol (vitamin D2) 1,250 mcg (50,000 unit) capsule Take 1 capsule every week by oral route for 90 days. active Not Available Not Available No t Available losartan 50 mg-hydroc hlorothia zide 12.5 mg tablet Take 1 tablet every day by oral route. active Not Available Not Available No t Available lancing device 07/13 completed Not Available Not Available Not Available metformin ER 500 mg 24 hr tablet,ex tended release (gastric retention ) Take 1 tablet twice a day by oral route for 90 days. 09/30 completed Not Available Not Available Not Available Ultra Thin Lancets 31 gauge active Not Available Not Available Not Available Jardiance 10 mg tablet Take 1 tablet every day by oral route for 90 days. 05/30 completed too expensiv e Not Available Not Available Not Available True Metrix Glucose Test Strip Take 1 strip every day by miscell. route for 90 days. 2024 active Not Available Not Available Not Avai lable OneTouch Ultra2 Meter 07/13 completed Not Available Not Available Not Available Vitals Date Recorded Body height Body mass index (BMI) Body weight Body temperature Heart rate Oxygen saturation Oxygen saturation in Arterial blood by Pulse oximetry Systolic blood pressure Diastolic blood pressure Provider Name and Address Organization Details Last Updated DateTime 3 149.86 cm 29.3 kg/m2 71730.8 9 g 97.2 [degF] 67 /min 98 % 98 % 120 mm[Hg] 70 mm[Hg] Tiffani Palencia CMA [place] [employer] [facility] 3 09:53:47 Date Recorded Body height Body mass index (BMI) Body weight Body temperature Heart rate Oxygen saturation Oxygen saturation in Arterial blood by Pulse oximetry Systolic blood pressure Diastolic blood pressure Provider Name and Address Organization Details Last Updated DateTime 3 149.86 cm 28.3 kg/m2 74660.9 3 g 97.2 [degF] 81 /min 97 % 97 % 106 mm[Hg] 64 mm[Hg] KRISTEN Ann [place] [employer] [facility] 3 15:52:53 Date Recorded Body height Body mass index (BMI) Body weight Body temperature Heart rate Oxygen saturation Oxygen saturation in Arterial blood by Pulse oximetry Systolic blood pressure Diastolic blood pressure Provider Name and Address Organization Details Last Updated DateTime 4 149.86 cm 28.9 kg/m2 20038.7 1 g 96.8 [degF] 62 /min 99 % 99 % 138 mm[Hg] 70 mm[Hg] Kenia Stafford CMA [facility] [employer] [facility] 4 09:53:58 Date Recorded Body height Body mass index (BMI) Body weight Body temperature Heart rate Oxygen saturation Oxygen saturation in Arterial blood by Pulse oximetry Systolic blood pressure Diastolic blood pressure Provider Name and Address Organization Details Last Updated DateTime 4 149.86 cm 28.3 kg/m2 08974.9 3 g 98.4 [degF] 66 /min 99 % 99 % 136 mm[Hg] 68 mm[Hg] Anabella Dejesus [facility] [employer] [facility] 4 09:38:41 Date Recorded Pain severity - 0-10 verbal numeric rating [Score] - Reported Provider Name and Address Organization Details Last Updated DateTime 11/30/2023 0 Maureen Dietz RN [facility] [employer] [facility] 11/30/2023 10:02:03 Date Recorded Body height Body mass index (BMI) Body weight Body temperature Heart rate Oxygen saturation Oxygen saturation in Arterial blood by Pulse oximetry Systolic blood pressure Diastolic blood pressure Provider Name and Address Organization Details Last Updated DateTime 5 149.86 cm 30.1 kg/m2 05262.2 6 g 96.9 [degF] 71 /min 98 % 98 % 138 mm[Hg] 74 mm[Hg] KRISTEN Ann [facility] [employer] [facility] 5 09:18:29 Social History Question Answer Notes LastModified by Organization Details LastModified Time Tobacco Smoking Status Former Smoker Not Available [facility] 06/19/2022 01:23:24 Do You Have An Advance Directive? No [id number] Information not available 06/19/2022 What Is Your Level Of Alcohol Consumption? None [id number] Information not available 06/19/2022 Are You Blind Or Do You Have Difficulty Seeing? No Wears Glasses [email or web address] Information not available 11/30/2023 Is Blood Transfusion Acceptable In An Emergency? Yes [email or web address] Information not available 11/30/2023 What Is Your Level Of Caffeine Consumption? Heavy [email or web address] Information not available 11/30/2023 In The 14 Days Before Symptom Onset, Have You Had Close Contact With A Laboratory-conf irmed COVID-19 While That Case Was Ill? No Not Applicable [email or web address] Information not available 11/30/2023 In The 14 Days Before Symptom Onset, Have You Had Close Contact With A Person Who Is Under Investigation For COVID-19 While That Person Was Ill? No Not Applicable [email or web address] Information not available 11/30/2023 Are You Currently Employed? Yes [email or web address] Information not available 11/30/2023 Are You Deaf Or Do You Have Serious Difficulty Hearing? No [id number] Information not available 06/19/2022 What Type Of Diet Are You Following? REGULAR [id number] Information not available 06/19/2022 What Is The Highest Grade Or Level Of School You Have Completed Or The Highest Degree You Have Received? 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 7 [email or web address] Information not available 11/30/2023 On Those Days That You Engage In Moderate To Strenuous Exercise, How Many Minutes, On Average, Do You Exercise? 15 [email or web address] Information not available 11/30/2023 Have There Been Any Changes To Your Family Or Social Situation? Yes Aided Friend To Move Into Lt [email or web address] Information not available 11/30/2023 What Is The Fluoride Status Of Your Home? Fluoridated [email or web address] Information not available 11/30/2023 When Did You Quit Smoking? 6-10yearssincelast cigarette Quit In 2013 [email or web address] Information not available 11/30/2023 Are There Any Guns Present In Your Home? Yes MIGRATION.0301 [id number] Information not available 06/19/2022 Do You Use Insect Repellent Routinely? Yes MIGRATION.030 [id number] Information not available 06/19/2022 Where Do You Live? SingleLevelHouse [email or web address] Information not available 11/30/2023 Presence Of Domestic Violence No [email or web address] Information not available 11/30/2023 Guns Present In The Home? Yes [email or web address] Information not available 11/30/2023 Are You Able To Care For Yourself? Yes [email or web address] Information not available 11/30/2023 Are You Blind Or Do Yo Have Difficulty Seeing? No [email or web address] Information not available 11/30/2023 Are You Deaf Or Do You Have Serious Difficulty Hearing? No [email or web address] Information not available 11/30/2023 General Stress Level? Low [email or web address] Information not available 11/30/2023 Live Alone Of With Others? With Others [email or web address] Information not available 11/30/2023 Do You Have A Medical Power Of Six Sigma Project Manager? No [email or web address] Information not available 11/30/2023 What Was The Date Of Your Most Recent Tobacco Screening? 11/30/2023 [email or web address] Information not available 11/30/2023 How Many Children Do You Have? 1 [email or web address] Information not available 11/30/2023 Do You Have Any Pets? Yes MIGRATION.0301 [id number] Information not available 06/19/2022 What Is Your Relationship Status? MIGRATION.0301 [id number] Information not available 06/19/2022 Do You Use Your Seat Belt Or Car Seat Routinely? Yes [email or web address] Information not available 11/30/2023 Are You Sexually Active? No [email or web address] Information not available 11/30/2023 Do You Have Smoke And Carbon Monoxide Detectors In Your Home? Yes MIGRATION.0301 [id number] Information not available 06/19/2022 At What Age Did You Start Smoking Tobacco? 24 [email or web address] Information not available 11/30/2023 Are You Passively Exposed To Smoke? No MIGRATION.0301 645019 Information not available 06/19/2022 Are There Any Smokers In Your House? No MIGRATION.0301 [id number] Information not available 06/19/2022 What Types Of Sporting Activities Do You Participate In? None [email or web address] Information not available 11/30/2023 Do You Feel Stressed (tense, Restless, Nervous, Or Anxious, Or Unable To Sleep At Night)? [id number] [email or web address] Information not available 11/30/2023 Do You Use Any Illicit Or Recreational Drugs? No MIGRATION.0301 803735 Information not available 06/19/2022 Do You Use Sunscreen Routinely? Yes MIGRATION.0301 [id number] Information not available 06/19/2022 How Many Years Have You Smoked Tobacco? 40 [email or web address] Information not available 11/30/2023 Have You Recently Traveled Abroad? No MIGRATION.0301 097883 Information not available 06/19/2022 Do You Have Any Dietary Restrictions? No MIGRATION.0301 [id number] Information not available 06/19/2022 Do You Or Have You Ever Used Any Other Forms Of Tobacco Or Nicotine? No MIGRATION.0301 936225 Information not available 06/19/2022 Sex: Unknown Functional Status Question Answer Note LastModified by [employer] Details LastModified Time Do you have difficulty walking or climbing stairs? No MIGRATION.1325071 026 Information not available 06/19/2022 Do you have transportation difficulties? No MIGRATION.5811512 026 Information not available 06/19/2022 Are you able to walk? YESWOREST MIGRATION.1545700 026 Information not available 06/19/2022 Do you have difficulty doing errands alone? No MIGRATION.7820263 026 Information not available 06/19/2022 Are you able to care for yourself? Yes MIGRATION.4270699 026 Information not available 06/19/2022 Do you have difficulty dressing or bathing? No MIGRATION.8167715 026 Information not available 06/19/2022 What is your exercise level? Moderate MIGRATION.8228331 026 Information not available 06/19/2022 Mental Status Question Answer Note LastModified by Organizat ion Details LastModified Time Do you have difficulty concentrating, remembering or making decisions? No MIGRATION.[id number] 6 Information not available 06/19/2022 Family History Relationship Description Onset Age of this Age Resolved Age Notes LastModified by Organization Details LastModified Time Father Family history of malignant neoplasm MIGRATION.401 [id number] Not available 06/19/2022 01:23:48 Mother Psoriasis MIGRATION.460 [id number] Not available 06/19/2022 01:23:48 Unspecified Relation Diabetes mellitus MIGRATION.864 [id number] Not available 06/19/2022 01:23:48 Medical History No medical history recorded. Gynecological HistoryNo gynecological history recorded. Obstetrics History GPAL:G 0 P 0 0 0 0 Immunizations Vaccine Type Date Status Note Provider Nam e and Address Organization Details Recorded Time Influenza, high-dose, quadrivalent, PF 2 completed Not Available [employer] 06/19/2022 01:26:00 Influenza, high-dose, quadrivalent, PF 3 completed KRISTEN Cavazos, [place] [employer] 01/27/2023 17:14:30 Pneumococcal conjugate PCV 13 3 completed Ilan Casas MD [address] [facility], [address], [place], [address], [employer] 09/29/2022 13:05:36 pneumococcal polysaccharide PPV23 4 completed Ilan Casas MD [address] [facility] [address] [facility], [address], [place], [address], [employer] 11/30/2023 17:18:38 Past Encounters Encounter ID Performer Location Encounter Start Date Encounter Closed Date Diagnosis/Indication Diagnosis SNOMED-CT Code Diagnosis ICD10 Code Diagnosis Note [id number] [facility] [address] [address] 02/03/2022 00:00:00 02/03/2022 14:58:21 [id number] [facility] [address] [address] 04/28/2022 00:00:00 04/28/2022 14:59:27 [id number] [facility] [address] [address] 06/02/2022 00:00:00 06/02/2022 12:58:25 [id number] Ilan Casas MD [facility] [address] [place] [address] 09/29/2022 09:43:14 09/29/2022 10:49:26 Essential hypertension 82141750 I10 under control Hypothyroidism 42790611 E03.9 labs good Osteopenia 607512810 M85 .80 on ca/vit d Diabetes mellitus 797076 09 E11.9 LABS Adult heal th examination 816314356 Z00.00 Mammo- 04/2022 Dexa- 02/2022 colonoscop y- 2022 COVID- 1 vaccine, 1 booster Flu- 01/2022 P13- TODAY PPV23- shingles shot Ex-smoker 0173147 Z87.89 1 LDCT 01/2022 Liver func tion tests outside reference range 353238731 R94.5 improving Nodule of lung 160651069 R91.1 LDCT 02/08 Administra tion of pneumococcal vaccine 21868308 Z23 [id number] Ilan Casas MD [facility] Internal [facility] [address] [facility] [place] [address] 01/27/2023 15:42:24 01/27/2023 16:15:28 Essential hypertension 04069895 I10 under control Hypothyroidism 69211773 E03.9 labs good Osteopenia 096897803 M85 .80 on ca/vit d Diabetes mellitus 204959 09 E11.9 LABS Adult heal th examination 251697498 Z00.00 Mammo- 3Dex a- ol onoscopy- OVID- 1 vaccine, 1 boosterFlu - 01/27/2023 P13- [id number] -shingles shot Ex-smoker 5855143 Z87.89 1 LDCT 01/2022 Liver func tion tests outside reference range 100634247 R94.5 improving Nodule of lung 324266671 R91.1 LDCT 02/08 Administra tion of influenza vaccine 57188710 Z23 Vitamin D deficiency 347 65028 E55.9 [id number] Ilan Casas MD [facility] Internal [facility] [address] [facility] [place] [address] 06/01/2023 09:44:42 06/01/2023 10:32:24 Essential hypertension 97555514 I10 watch Hypothyroidism 01913811 E03.9 labs good Osteopenia 182928331 M85 .80 on ca/vit d, Adult heal th examination 534288277 Z00.00 Mammo- 3Dex a- 02/2022LDC T- 02/17/2022 - OrderedCol onoscopy- 3COVID- 1 vaccine, 1 boosterFlu - 01/27/2023 P13- [id number] -shingles shot Ex-smoker 4546476 Z87.89 1 smoked Liver func tion tests outside reference range 935863591 R94.5 improving, keep watching diet Nodule of lung 604486539 R91.1 LDCT 02/08 Vitamin D deficiency 347 08841 E55.9 on otc Type 2 karthikeyan betes mellitus 23941286 E11.9 Hyperlipidemia 02878389 E78.5 under control Screening mammography 24 779422 Z12.31 Eruption 782206964 R21 [id number] Ilan Casas MD [facility] Internal [address] [place] [address] 11/30/2023 09:31:16 11/30/2023 10:23:18 Essential hypertension 87573073 I10 under control Hypothyroidism 17876765 E03.9 labs good Osteopenia 657412647 M85 .80 on ca/vit d, Adult heal th examination 217337969 Z00.00 Mammo- 3Dex a- 02/2022LDC T- 02/17/2022 - OrderedCol onoscopy- OVID- 1 vaccine, 1 boosterFlu - 01/27/2023 P13- [id number] -shingles shot Ex-smoker 3513685 Z87.89 1 smoked , qualifies for LDCT Liver func tion tests outside reference range 512707231 R94.5 improved, keep watching diet Nodule of lung 435467326 R91.1 LDCT 02/08 Vitamin D deficiency 347 93467 E55.9 on otc Type 2 karthikeyan betes mellitus 90665873 E11.9 Hyperlipidemia 54789761 E78.5 under control Eruption 606339055 R21 meds help Screening for disorder 190659617 Z13.9 Administra tion of pneumococcal vaccine 33128510 Z23 [id number] Ilan Casas MD [facility] Internal Med [address] [facility] [place] [address] 05/30/2024 09:13:34 05/30/2024 09:53:20 Type 2 diabetes mellitus 95717661 E11.9 stop actos, check labs and start glipizide if needed Essential hypertension 32375548 I10 under control Hypothyroidism 02679677 E03.9 under control Osteopenia 131647094 M85 .80 on ca/vit d, Adult heal th examination 719308720 Z00.00 Mammo- 06/15/2023 Dexa- 02/2022LDC T- 02/17/2022 - Ordered AGAINColon oscopy- 3COVID- 1 vaccine, 1 boosterFlu - 01/27/2023 P13- 09/29/2022 PPV23- 11/30/2023 shingles shot Ex-smoker 3716768 Z87.89 1 smoked , qualifies for LDCTQuit 05/21/2013 Liver func tion tests outside reference range 541476584 R94.5 improved, keep watching diet Nodule of lung 633322082 R91.1 LDCT 02/08, again dicussed to get the LDCT Vitamin D deficiency 347 99836 E55.9 on otc Hyperlipidemia 85207884 E78.5 under control Eruption 598933909 R21 meds help Screening mammography 24 711904 Z12.31 Health Concerns Section Related Observation LastModified by Organization Detai ls LastModified Time None Recorded Concern Status LastModified by Organization Details LastModified Time None Recorded Advance Directives Directive N: Payers Encounter Date Sequence Insurance Name Policy Number Policy Tran Covered Member ID Tran Member ID Guarantor Name 09/29/2022 1 [facility] (MEDICARE REPLACEMENT/AD VANTAGE - PPO) [id number] Vangie Birmingham [id number] Vangie Birmingham 01/27/2023 1 [facility] (MEDICARE REPLACEMENT/AD VANTAGE - PPO) [id number] Vangie Birmingham [id number] Vangie Birmingham 06/01/2023 1 [employer] (MEDICARE REPLACEMENT HMO) Vangie Birmingham [id number] Vangie Birmingham 11/30/2023 1 [employer] (MEDICARE REPLACEMENT HMO) Vangie Birmingham [id number] Vangie Birmingham 05/30/2024 1 [employer] (MEDICARE REPLACEMENT/AD VANTAGE - PPO) Vangie Birmingham [id number] Vangie Birmingham Notes Date Note Type Note Provider Name and Address Organization Details Recorded Time 09/29/2022 text/html Pt is here for f /u, taking meds daily,WE HAVE HISTORICAL MEDICAL RECORDS DM- onset 05/12, was pre diabetic in the past, accu checks are under control,watching dietEye exam 09/09, no reportMeds- noneHypothyroidism- under control,med- Levothyroxine 50 mcgHTN- under controlMed- losartan 50 mg-HCTZ 12.5 mg LFT high, hep screening neg 03/11, watching dietEx-Smoker- quit 9 years ago , smoked for 40 yearsShe is a caregiver, very active. Ilan Casas MD [address], [address], [place], [address], [employer] 09/29/2022 13:05:44 01/27/2023 text/html Pt is here for f /u, taking meds daily, DM- onset 05/12, was pre diabetic in the past, accu checks are 120-135No Hypoglycemia, No neuropathywatching diet, has lost 5 lbsEye exam 09/09, no reportMeds- Jardiance 10mg daily ( DOES NOT WANT METFORMIN DUE TO CONCERN ABOUT SIDE EFFECTS )Hypothyroidism- under control,med- Levothyroxine 50 mcgHTN- under controlMed- losartan 50 mg-HCTZ 12.5 mg Vit d def- on otc LFT high, hep screening neg 03/11, watching diet, BETTEREx-Smoker- quit 9 years ago , smoked for 40 yearsShe is a caregiver, very active. Ilan Casas MD [address], [address], [place], [address], [employer] 01/27/2023 16:10:05 06/01/2023 text/html Pt is here for f /u, taking meds daily, DM- onset 05/12, was pre diabetic in the past, accu checks are 120-146No Hypoglycemia, No neuropathywatching diet, has gained 3 lbsEye exam 09/09, no reportMeds- Jardiance 10mg daily,Ran out and took glipizide for a month ( husbands )( DOES NOT WANT METFORMIN DUE TO CONCERN ABOUT SIDE EFFECTS )Hypothyroidism- under control,med- Levothyroxine 50 mcgHTN- under controlMed- losartan 50 mg-HCTZ 12.5 mg Vit d def- on otc Osteopenia- on otc, dexa 03/11 Fatty liver-LFT high, hep screening neg 03/11, watching diet, ultra sound 2021 showed fatty liver, does not drink alcoholEx-Smoker- quit in 2013 ago , smoked 1ppd for 40 years Rash- off and on to the body due to exposure, Sean is a caregiver, very active. Ilan Casas MD [address] [facility], [place], [address], [employer] 06/01/2023 10:29:37 11/30/2023 text/html Pt is here for f /u, taking meds daily, Pt feeling well. Pt compliant to meds MAWV DM- onset 05/12, was pre diabetic in the past, accu checks are 120-146No Hypoglycemia,No neuropathywatching diet, has gained 3 lbsEye exam 07/11Meds- Jardiance 10mg daily( DOES NOT WANT METFORMIN DUE TO CONCERN ABOUT SIDE EFFECTS )Hypothyroidism- under control, TSH nl 06/13med- Levothyroxine 50 mcgHTN- under controlMed- losartan 50 mg-HCTZ 12.5 mg Vit d def- on otc Osteopenia- on otc, dexa 03/11 Fatty liver-improved, hep screening neg 03/11, watching diet, ultra sound 2021 showed fatty liver, does not drink alcoholEx-Smoker- quit in 2013 ago , smoked 1ppd for 40 years Rash- off and on to the body, meds Kevinmadeline is a caregiver, very active. Ilan Casas MD [address] [facility], [place], [address], [employer] 11/30/2023 17:18:42 05/30/2024 text/html Pt is here for f /u, taking meds daily, Pt feeling well. DM- onset 05/12, was pre diabetic in the past, accu checks are 122-159No Hypoglycemia,No neuropathywatching diet, has gained 9 lbsEye exam 07/11Meds- Jardiance 10mg daily- MED WAS TOO EXPENSIVE SO SHE HAS BEEN TAKING HER HUSBANDS ACTOS 30MG(DOES NOT WANT METFORMIN DUE TO CONCERN ABOUT SIDE EFFECTS ) willing to take glipizide if needed, going to stop actosHypothyroidism- under control, TSH neededmed- Levothyroxine 50 mcgHTN- under controlMed- Losartan 50 mg-HCTZ 12.5 mg Vit d def- on otc Osteopenia- on otc, dexa 03/11 Fatty liver-improved, hep screening neg 03/11, watching diet, ultra sound 2021 showed fatty liver, does not drink alcoholEx-Smoker- quit in 2013 ago , smoked 1ppd for 40 years Rash- off and on to the body, meds help, rash more in the summer.Meds- Betamethasone topical creamShe is a caregiver, very active. Ilan Casas MD [address] [facility] [facility] [address], [place], [address], [facility] [employer] 05/30/2024 09:39:36 OBGyn Episode No OBEpisode recorded.
== END 2024-08-05 07:13 | disposition home or self-care (01) ==
LOC: ANHIMG 07:15
PROVIDERS: PCP Internal Medicine; Visit Provider Internal Medicine
DX: Z12.31 Encounter for screening mammogram for malignant neoplasm of breast (principal)
CPT/HCPCS: 77063; 77067